=== PATIENT | male | born 1970 | race Hispanic/Latino ===

== ENCOUNTER 2016-12-20 16:03 | Emergency (ER) | payer MEDICARE ==
[2016-12-20 16:04] VITALS: BMI 25.7
[2016-12-20 16:21] VITALS: BP 132/82; PULSE 80; RESP 16; TEMP 98.5; O2SAT 99
--- NOTE | 2016-12-20 16:52 | C.PDOC ---
History Of Present Illness Patient is a 46-year-old male, presents to the emergency department with requesting detox from Heroin. Patient states he injects and his last use was this morning. Denies any other substance use/abuse. Denies fevers, chest pain or shortness of breath. No other complaints at this time. Time Seen by Provider: 12/20/16 16:49 Chief Complaint (Nursing): Substance Abuse History Per: Patient History/Exam Limitations: no limitations Modifying Factor(s): Other (Heroin) Past Medical History Reviewed: Historical Data, Nursing Documentation, Vital Signs Vital Signs: Last Vital Signs Temp 98.5 F 12/20/16 16:20 Pulse 80 12/20/16 16:20 Resp 16 12/20/16 16:20 BP 132/82 12/20/16 16:20 Pulse Ox 99 12/20/16 17:33 - Medical History PMH: Chronic Pain (Back) Denies: Depression, Chronic Kidney Disease Surgical History: Back Surgery Family History: States: CAD - Social History Hx Tobacco Use: Yes Hx Alcohol Use: No Hx Substance Use: Yes - Immunization History Hx Tetanus Toxoid Vaccination: No Hx Influenza Vaccination: No Hx Pneumococcal Vaccination: No Review Of Systems Constitutional: Negative for: Fever Cardiovascular: Negative for: Chest Pain Respiratory: Negative for: Shortness of Breath Psych: Negative for: Suicidal ideation Physical Exam - Physical Exam Appears: Non-toxic, No Acute Distress Skin: Warm, Dry, No Rash Head: Atraumatic, Normacephalic Eye(s): bilateral: Normal Inspection Nose: Normal Oral Mucosa: Moist Lips: Normal Appearing Throat: Normal Neck: Normal ROM Cardiovascular: Rhythm Regular, No Murmur Respiratory: Normal Breath Sounds, No Accessory Muscle Use Gastrointestinal/Abdominal: Normal Exam, Bowel Sounds, Soft Extremity: Normal ROM, Other (Track fox to left antecubital region) Neurological/Psych: Oriented x3, Normal Speech ED Course And Treatment O2 Sat by Pulse Oximetry: 99 Medical Decision Making Medical Decision Making: Case was discussed w/ workers compensation analyst, who states that there are no detox beds available. Patient made aware; Pt will be discharged w/ a list of detox programs , and information for the detox co-ordinator/instructions for pre-screening process. Patient is agreeable with plan. All questions answered. Disposition - Disposition Referrals: [facility] [Outside] Disposition: HOME/ ROUTINE Disposition Time: 17:27 Condition: FAIR Additional Instructions: Mr. Sage, thank you for letting us take care of you today. Return to the ER if your symptoms worsen, or if any problems. Please call the various detox center phone numbers that were given to you today to see if they can accept you for detox. Instructions: Opioid Dependence (ED) Forms: General Discharge Instructions Print Language: UKRAINIAN - POA Present On Arrival: None - Clinical Impression Clinical Impression: Drug dependence - Scribe Statement Good Meng All medical record entries made by the Lexiiibmamadou were at my direction and personally dictated by me. I have reviewed the chart and agree that the record accurately reflects my personal performance of the history, physical exam, medical decision making, and the department course for this patient. I have also personally directed, reviewed, and agree with the discharge instructions and disposition.
== END 2016-12-20 17:30 | disposition home or self-care (01) ==
LOC: C.ER 16:03
DX: F11.20 Opioid dependence, uncomplicated (principal)

== ENCOUNTER 2017-03-29 01:05 | Inpatient (IN) | payer MEDICARE ==
[2017-03-29 01:06] VITALS: BMI 25.7
--- NOTE | 2017-03-29 02:44 | C.PDOC ---
History Of Present Illness 46 year old male presents to the ED as a pre-screen for detox from heroin. Patient uses through IV and last use was today. He denies physical complaints, suicidal, or homicidal ideations. Time Seen by Provider: 03/29/17 01:33 Chief Complaint (Nursing): Substance Abuse History Per: Patient History/Exam Limitations: no limitations Suicide/Self Injury Attempted (Context): None Modifying Factor(s): Narcotics (heroin) Pain Scale Rating Of: 0 Associated Symptoms: denies: Suicidal Thoughts, Suicidal Plan Involuntary Hold By: None Recent travel outside of the [place]: No Past Medical History Reviewed: Historical Data, Nursing Documentation, Vital Signs Vital Signs: Last Vital Signs Temp 97.7 F 03/29/17 01:20 Pulse 57 L 03/29/17 01:20 Resp 14 03/29/17 01:20 BP 122/72 03/29/17 01:20 Pulse Ox 97 03/29/17 03:36 - Medical History PMH: Chronic Pain (Back) Surgical History: Back Surgery Family History: States: Unknown Family Hx, CAD - Social History Hx Tobacco Use: Yes Hx Alcohol Use: No Hx Substance Use: No - Immunization History Hx Tetanus Toxoid Vaccination: No Hx Influenza Vaccination: No Hx Pneumococcal Vaccination: No Review Of Systems Constitutional: Negative for: Fever Cardiovascular: Negative for: Chest Pain Respiratory: Negative for: Shortness of Breath Gastrointestinal: Negative for: Nausea, Vomiting, Abdominal Pain Psych: Negative for: Suicidal ideation Physical Exam - Physical Exam Appears: Non-toxic, No Acute Distress Skin: Warm, Dry Head: Atraumatic, Normacephalic Eye(s): bilateral: Normal Inspection, EOMI Oral Mucosa: Moist Neck: Supple Chest: Symmetrical, No Deformity Cardiovascular: Rhythm Regular, No Murmur Respiratory: No Rhonchi, No Wheezing, Other (clear to auscultation bilaterally ) Gastrointestinal/Abdominal: Soft, No Tenderness, No Distention, No Guarding, No Rebound Extremity: Normal ROM, No Tenderness, Other (track fox to bilateral arms ) Neurological/Psych: Oriented x3 Gait: Steady ED Course And Treatment - Laboratory Results Result Diagrams: 03/29/17 03:19 03/29/17 03:19 O2 Sat by Pulse Oximetry: 97 (RA) Pulse Ox Interpretation: Normal Progress Note: Labs and blood work were ordered. Pt is medically cleared for Detox admission. Pt was evaluated by maintenance worker house trailer and will be admitted to Detox under Dr Keller Disposition - Disposition Disposition: HOSPITALIZED Disposition Time: 03:34 Condition: STABLE Forms: [facility] ([place]) - Clinical Impression Clinical Impression: Opioid use disorder, severe, dependence - PA / SAFETY INSPECTOR / Resident Statement MD/DO has reviewed & agrees with the documentation as recorded. - Scribe Statement The provider has reviewed the documentation as recorded by the Scribe Jasmine Owens All medical record entries made by the Lexiiibmamadou were at my direction and personally dictated by me. I have reviewed the chart and agree that the record accurately reflects my personal performance of the history, physical exam, medical decision making, and the department course for this patient. I have also personally directed, reviewed, and agree with the discharge instructions and disposition.
[2017-03-29 03:21] LABS: BASO # 0.1 K/uL (0.0-0.2); BASO % 0.8 % (0.0-2.0); EOS # 0.4 K/uL (0.0-0.7); EOS % 4.7 % (0.0-4.0); HEMATOCRIT 36.4 % (35.0-51.0); LYMPH % 26.6 % (20.0-40.0); MEAN CELL VOLUME 80.7 fL (80.0-94.0); MEAN CORPUSCULAR HEMOGLOBIN 27.8 pg (27.0-31.0); MEAN CORPUSCULAR HGB CONC 34.5 g/dL (33.0-37.0); MEAN PLATELET VOLUME 6.8 fL (7.2-11.7); MONO # 0.4 K/uL (0.0-0.8); NRBC % 0.1 % (0.0-2.0); RED CELL DISTRIBUTION WIDTH 13.5 % (11.5-14.5); WHITE BLOOD COUNT 7.5 K/uL (4.8-10.8)
[2017-03-29 03:29] LABS: CHLORIDE 98 mmol/L (98-107)
[2017-03-29 03:30] LABS: POTASSIUM 3.8 mmol/L (3.6-5.2); SODIUM 135 mmol/L (132-148)
[2017-03-29 03:32] LABS: ALB/GLOB RATIO 1.5 (1.0-2.1); ALKALINE PHOSPHATASE 79 U/L (38-126); AST/SGOT 57 U/L (17-59); BILIRUBIN,TOTAL 0.8 mg/dL (0.2-1.3); BLOOD UREA NITROGEN 13 mg/dL (9-20); CARBON DIOXIDE 26 mmol/L (22-30); GFR AFRICAN-AMERICAN > 60; TOTAL PROTEIN 6.4 g/dL (6.3-8.3)
[2017-03-29 03:33] LABS: ALCOHOL SERUM < 10 mg/dl (0-10); ALT/SGPT 65 U/L (21-72); CALCIUM 8.6 mg/dl (8.6-10.4); GLUCOSE,RANDOM 93 mg/dL (75-110)
--- NOTE | 2017-03-29 04:48 | PCM.BM ---
Treatment Plan Problems - Problems identified on initial assessmt Ineffective Individual Coping Assessment reference: NA Status: Active Treatment assets and liabiliti Patient Assests: ADL independent Patient Liabilities: substance abuse - Milieu Protocol Maintain good personal hygiene: daily Encourage regular showers, daily Remind patient to perform daily oral care, other Assist patient to perform ADL's Maintain personal safety: every shift Educate patient to report safety concerns to staff, every shift Monitor environment for contraband/sharps Medication safety: Monitor for expected outcome, potential side effects: every shift, Assess barriers to learning: every shift, Assess readiness for medication education: every shift
[2017-03-29 05:58] LABS: RBC URINE < 1 /hpf (0-3); URINE BACTERIA RARE (<OCC); URINE BILIRUBIN NEGATIVE (NEGATIVE); URINE BLOOD NEGATIVE (NEGATIVE); URINE COLOR Yellow (YELLOW); URINE GLUCOSE (UA) NORMAL (Normal); URINE KETONE NEGATIVE (NEGATIVE); URINE LEUKOCYTE ESTERASE NEG Leu/uL (Negative); URINE PROTEIN NEGATIVE (NEGATIVE); WBC URINE < 1 /hpf (0-5)
[2017-03-29 06:54] VITALS: RESP 18
[2017-03-29 07:38] VITALS: TEMP 98.1
[2017-03-29 09:12] VITALS: BP 137/69; PULSE 54; O2SAT 97
--- NOTE | 2017-03-30 22:24 | CARD ---
APPROVED REPORT EKG Measurement Heart [id number] <Conclusion> Marked sinus bradycardia Low voltage QRS Abnormal ECG
--- NOTE | 2017-03-30 22:25 | CARD ---
APPROVED REPORT EKG Measurement Heart [id number] <Conclusion> Marked sinus bradycardia Septal infarct, age undetermined Abnormal ECG
[2017-03-31] MEDS ORDERED: Pneumococcal 23-Valent Vaccine IM ONE (10:00)
[2017-04-01] MEDS ORDERED: Influenza Vaccine 60 mcg/0.5 mL SYR (4YR UP) IM ONE (10:00)
== END 2017-03-29 11:30 | disposition left against medical advice (07) | DRG 894 ==
LOC: C.ER 01:05 → C.7D 03:35
DX: F11.20 Opioid dependence, uncomplicated (principal); Z87.891 Personal history of nicotine dependence